=== PATIENT | male | born 1985 | race Two or more races ===

== ENCOUNTER 2018-11-22 18:20 | Emergency (ER) | payer OTHER ==
[2018-11-22] MEDS ORDERED: Diphtheria,Pertussis(Acell),Tetanus Vaccine 0.5 ML SDV IM ONE (18:51)
[2018-11-22] MEDS ORDERED: traMADol 50 MG Tab PO ONE (19:31)
[2018-11-22] MEDS ORDERED: ceFAZolin 1 GM in Sodium Chloride 0.9% 100 ML IV ONE (19:37)
[2018-11-22] MEDS ORDERED: Sodium Chloride 0.9% 10 ML Syringe FLUSH PRN (19:38)
--- NOTE | 2018-11-22 19:55 | EDM.PDOC ---
ED HPI GENERAL MEDICAL PROBLEM - General Chief Complaint: Upper Extremity Injury/Pain Stated Complaint: finger pad avulsion Time Seen by Provider: 11/22/18 18:50 Source of Information: Reports: Patient, [employer]ing Dispatcher History Limitations: Reports: Language Barrier - History of Present Illness INITIAL COMMENTS - FREE TEXT/NARRATIVE: Patient comes to ER with acute fingertip injury of right ring finger. Got tip of finger caught in gate. Unknown tetanus status. Denies other injuries. Was at work when this happened. right hand 4th digit Pain Score (Numeric/FACES): 6 - Related Data Allergies Allergy/AdvReac Type Severity Reaction Status Date / Time No Known Allergies Allergy Verified 11/22/18 18:38 Home Meds: Home Meds . [No Known Home Meds] 11/22/18 [History] Past Medical History - Past Health History Medical/Surgical History: Denies Medical/Surgical History Social & Family History - Tobacco Use Smoking Status *Q: Never Smoker - Caffeine Use Caffeine Use: Reports: Coffee - Alcohol Use Alcohol Use History: No - Recreational Drug Use Recreational Drug Use: No Drug Use in Last 12 Months: No Review of Systems - Review of Systems Review Of Systems: ROS reveals no pertinent complaints other than HPI. ED EXAM, GENERAL - Physical Exam Exam: See Below Exam Limited By: No Limitations General Appearance: Alert, WD/WN, Moderate Distress Eye Exam: Bilateral Eye: EOMI, PERRL Nose: No: Nasal Deformity, Nasal Swelling Throat/Mouth: Normal Voice, No Airway Compromise Head: Atraumatic, Normocephalic Neck: Supple Respiratory/Chest: No Respiratory Distress Cardiovascular: Normal Peripheral Pulses Extremities: Normal Capillary Refill, Other (traumatic avulsion noted entire pad of right 4th finger. Approximately 1 inch across in each direction. Nail is intact. No loss of tendon function noted. Bleeding controlled. Other fingers/ rest of right hand unremarkable in appearance) Neurological: Alert, Oriented, Normal Cognition, Normal Gait Psychiatric: Normal Affect, Normal Mood Skin Exam: Wound/Incision (right ring finger as above) Course - Vital Signs Last Recorded V/S: Last Vital Signs Temp 37.1 C 11/22/18 18:38 Pulse 69 11/22/18 18:38 Resp 18 11/22/18 18:38 BP 121/65 11/22/18 18:38 Pulse Ox 99 11/22/18 18:38 - Orders/Labs/Meds Orders: Active Orders 24 hr Category Date Time Status Vaccines to be Administered [RC] PER UNIT ROUTINE Care 11/22/18 18:51 Active Fingers Fourth Digit Rt F8 [CR] Stat Exams 11/22/18 18:50 Taken Sodium Chloride 0.9% [Saline Flush] Med 11/22/18 19:38 Active 10 ml FLUSH ASDIRECTED PRN Saline Lock Insert [OM.PC] Routine Oth 11/22/18 19:38 Ordered Medication Orders Sodium Chloride (Saline Flush) 10 ml FLUSH ASDIRECTED PRN PRN Reason: Keep Vein Open Meds: Medications Generic Name Dose Route Start Last Admin Trade Name Freq PRN Reason Stop Dose Admin Sodium Chloride 10 ml 11/22/18 19:38 Saline Flush FLUSH ASDIRECTED PRN Keep Vein Open Discontinued Medications Generic Name Dose Route Start Last Admin Trade Name Freq PRN Reason Stop Dose Admin Diphtheria/Tetanus/Acell Pertussis 0.5 ml 11/22/18 18:51 11/22/18 19:40 Adacel IM 11/22/18 18:52 0.5 ml .ONCE ONE Administration Cefazolin Sodium 1 gm/ Sodium 100 mls @ 400 mls/hr 11/22/18 19:37 11/22/18 20 :07 Chloride IV 11/22/18 19:51 400 mls/hr ONETIME ONE Administration Tramadol HCl 50 mg 11/22/18 19:31 11/22/18 19:42 Ultram PO 11/22/18 19:32 50 mg ONETIME ONE Administration - Radiology Interpretation Free Text/Narrative:: Xray confirms fracture through distal portion of right 4th phalanx, minimal displacement. - Re-Assessments/Exams Free Text/Narrative Re-Assessment/Exam: 4th finger avulsion injury with fracture of distal phalanx. Call placed to [place] and spoke to supervisor fabrication Ortho . Treatment plan formulated. Patient received IV Ancef this evening. Wound soaked in Betadine and dressed using Xeroform. will see the patient tomorrow morning at his clinic in [place]. Patient is to call right away at 8am and arrange time to be seen. will evaluate the wound and determine further treatment plan and antibiotics. Tramadol PO given for pain. 11/22/18 20:39 T#3 from ER stock given for PRN use for pain Departure - Departure Time of Disposition: 21:00 Disposition: Home, Self-Care 01 Condition: Good Clinical Impression: Avulsion of fingertip Qualifiers: Encounter type: initial encounter Qualified Code(s): S61.209A - Unspecified open wound of unspecified finger without damage to nail, initial encounter - Discharge Information *PRESCRIPTION DRUG MONITORING PROGRAM REVIEWED*: Not Applicable *COPY OF PRESCRIPTION DRUG MONITORING REPORT IN PATIENT WENDI: Not Applicable Referrals: PCP,None [Primary Care Provider] - Forms: ED Department Discharge Additional Instructions: Call [facility] clinic tomorrow morning and tell them that we spoke to Dr. Hernandez He said that he would see Beck on Thursday (tomorrow) Tell them that you need a morning appointment given the ride situation. Do not remove the bandage that we placed on the finger. Let remove it. Have determine any further work restrictions for WSI. Follow up as directed by . will also determine what additional antibiotics you should continue taking. You were given a single IV dose tonight. [facility] number: [phone] - My Orders Last 24 Hours: My Active Orders 11/22/18 18:50 Fingers Fourth Digit Rt F8 [CR] Stat 11/22/18 18:51 Vaccines to be Administered [RC] PER UNIT ROUTINE 11/22/18 19:38 Sodium Chloride 0.9% [Saline Flush] 10 ml FLUSH ASDIRECTED PRN Saline Lock Insert [OM.PC] Routine - Assessment/Plan Last 24 Hours: My Active Orders 11/22/18 18:50 Fingers Fourth Digit Rt F8 [CR] Stat 11/22/18 18:51 Vaccines to be Administered [RC] PER UNIT ROUTINE 11/22/18 19:38 Sodium Chloride 0.9% [Saline Flush] 10 ml FLUSH ASDIRECTED PRN Saline Lock Insert [OM.PC] Routine
== END 2018-11-22 20:30 | disposition home or self-care (01) ==
LOC: LL.ED 18:20
DX: S61.204A Unspecified open wound of right ring finger without damage to nail, initial encounter (principal); Z23 Encounter for immunization; W23.0XXA Caught, crushed, jammed, or pinched between moving objects, initial encounter
CPT/HCPCS: 73140-F8; 90471; 90715; 96365; 99283; A9270-GY; J0690; J7050